=== PATIENT | male | born 1985 | race Caucasian/White ===

== ENCOUNTER 2020-07-23 06:24 | Day surgery (SDC) | payer OTHER ==
[2020-07-21 12:54] LABS: COVID AG,FIA SOURCE NASOPHARYNGEAL
[~2020-07-23] VITALS: Ht 172.7 cm; Wt 90.9 kg
[2020-07-23] MEDS ORDERED: LIDOCAINE 4% 50 ML SOLUTION TP ONE (06:25)
[2020-07-23] MEDS ORDERED: BENZOCAINE 20% 50 MCG/SPRAY 57 GM TP ONE (06:25)
[2020-07-23] MEDS ORDERED: ALBUTEROL SULFATE 2.5 MG/0.5 ML NEB SOLUTION NEB ONE (06:25)
[2020-07-23] MEDS ORDERED: LIDOCAINE 2% 30 ML JELLY TP ONE (06:25)
[2020-07-23] MEDS ORDERED: SODIUM CHLORIDE 0.9% 1,000 ML ONE (07:27)
[2020-07-23] MEDS: SODIUM CHLORIDE 0.9% 1,000 ML IV ONE (07:51)
[2020-07-23] MEDS ORDERED: FentaNYL CITRATE PF 100 MCG/2 ML VIAL ONE (07:57)
[2020-07-23] MEDS ORDERED: MIDAZOLAM HCL 5 MG/ML VIAL ONE (07:57)
[2020-07-23] MEDS ORDERED: MethylPREDNISolone SOD SUCC 125 MG/2 ML VIAL ONE (08:49)
[2020-07-23] MEDS: MethylPREDNISolone SOD SUCC 125 MG/2 ML VIAL IVP ONE (09:31)
[2020-07-23] MEDS ORDERED: OXYGEN THERAPY IH SCH (20:00)
== END 2020-07-23 10:35 | disposition home or self-care (01) ==
LOC: SURGERY 06:24
PROVIDERS: ATTEND Internal Medicine Critical Care Medicine
DX: J38.4 Edema of larynx (principal); B37.0 Candidal stomatitis; Z98.890 Other specified postprocedural states; K21.9 Gastro-esophageal reflux disease without esophagitis; Z91.013 Allergy to seafood; Z91.018 Allergy to other foods; Z91.09 Other allergy status, other than to drugs and biological substances
CPT/HCPCS: 31623; 31624; 71045; 87015; 87070; 87101; 87205; 87206; 87220; 87426; 88108; 88184; 88185; C9803; J2250; J2930; J3010; J7030; J7613; Z7610

== ENCOUNTER → 2024-07-19 | Emergency (ER) | payer OTHER ==
[~2024-07-19] VITALS: Ht 172.7 cm; Wt 90.9 kg
[~2024-07-19] MED LIST: ATORVASTATIN CALCIUM 40 MG TABLET PO ONE; CLOPIDOGREL BISULFATE 300 MG TABLET PO ONE
[2024-07-19 16:48] VITALS: BP 153/74; PULSE 70; RESP 18; TEMP 97.5; O2SAT 100
[2024-07-19 18:00] LABS: BASOPHILS % (AUTO) 0.3 % (0.0-2.0); EOSINOPHILS % (AUTO) 0.5 % (1.0-6.0); HEMATOCRIT 52.8 % (41-53); HEMOGLOBIN 17.8 g/dL (13.5-17.5); LYMPHOCYTES # (AUTO) 1.9 K/uL (1.0-4.8); LYMPHOCYTES % (AUTO) 23.4 % (22.0-44.0); MEAN CORPUSCULAR HEMOGLOBIN 30.7 pg (26.0-34.0); MEAN CORPUSCULAR HGB CONC 33.7 G/dL (31.0-37.0); MEAN CORPUSCULAR VOLUME 91 fL (80-100); MONOCYTES # (AUTO) 0.8 K/uL (0.1-1.0); MONOCYTES % (AUTO) 10.4 % (2.0-9.0); NEUTROPHILS # (AUTO) 5.2 K/uL (1.8-7.7); NEUTROPHILS % (AUTO) 65.4 % (40.0-70.0); PLATELET COUNT (AUTO) 242 K/uL (150-450); RED BLOOD CELL COUNT(AUTO) 5.79 MIL/uL (4.50-5.90); WHITE BLOOD COUNT (AUTO) 7.9 K/uL (4.5-11.0)
[2024-07-19 18:10] LABS: ANION GAP 9 mmol/L (8-16); CALCIUM, TOTAL 9.2 mg/dL (8.8-10.5); CARBON DIOXIDE 28 mmol/L (22-29); CHLORIDE 103 mmol/L (98-107); GLOMERULAR FILTR. RATE CALC > 60 mL/min (>60); GLUCOSE,RANDOM 115 mg/dL (70-110); POTASSIUM 4.2 mmol/L (3.5-5.1); SODIUM SERUM 140 mmol/L (136-145); UREA NITROGEN, BLOOD 15 mg/dL (7-18)
[2024-07-19] MEDS: ASPIRIN 325 MG TABLET PO ONE (18:46)
== END | disposition still patient (30) ==
LOC: EMS 16:41
DX: M54.81 Occipital neuralgia (principal); R42 Dizziness and giddiness; Z91.013 Allergy to seafood; Z91.018 Allergy to other foods
CPT/HCPCS: 70450; 80048; 85025; 99284